=== PATIENT | female | born 1960 | race Caucasian/White ===

== ENCOUNTER 2021-02-01 08:37 | Emergency (ER) | payer OTHER ==
[2021-02-01 09:34] LABS: ABSOLUTE NEUTROPHILS 6.2 thou/uL (1.4-8.2); BASOPHILS 0.5 % (0.0-2.0); EOSINOPHILS 0.6 % (0.0-3.0); HEMATOCRIT 38.5 % (37.0-47.0); HEMOGLOBIN 12.3 gm/dL (12.0-15.0); LYMPHOCYTES 14.7 % (24.0-44.0); MCH 27.8 pg (26.0-34.0); MCHC 31.8 g/dL (28.0-37.0); MCV 87.2 fL (80.0-100.0); MONOCYTES 12.6 % (1.0-8.0); PLATELET COUNT 323 thou/uL (150-400); POLYS 71.6 % (36.0-66.0); RBC 4.41 mil/uL (4.20-5.00); RDW 18.3 % (10.5-14.5); WBC 8.6 thou/uL (4.0-11.0)
[2021-02-01 09:37] LABS: CALCIUM 8.9 mg/dL (8.5-10.1); CREATININE 0.9 mg/dL (0.6-1.0); POTASSIUM 3.3 mmol/L (3.5-5.1)
[2021-02-01 09:43] LABS: ALBUMIN 3.4 g/dL (3.4-5.0); TOTAL BILIRUBIN 0.2 mg/dL (0.2-1.0); TOTAL PROTEIN 7.2 g/dL (6.4-8.2)
[2021-02-01 10:09] LABS: ANISOCYTOSIS 1+; PLATELET ESTIMATE NORMAL
== END 2021-02-01 10:34 | disposition left against medical advice (07) ==
LOC: ER 08:37
PROVIDERS: Emergency Medicine
DX: R11.2 Nausea with vomiting, unspecified (principal); F41.9 Anxiety disorder, unspecified; N18.30 Chronic kidney disease, stage 3 unspecified; Z53.21 Procedure and treatment not carried out due to patient leaving prior to being seen by health care provider